=== PATIENT | male | born 1975 | race Caucasian/White ===

== ENCOUNTER 2022-11-09 13:32 | Outpatient (CLI) | payer BC, SELFPAY ==
--- NOTE | 2022-11-09 13:45 | US_ITS ---
WS: [id number] RIGHT UPPER QUADRANT ULTRASOUND HISTORY: Right upper quadrant pain COMPARISON: None available. Liver: 14.1 cm in length. Normal size liver. Mild coarsened echotexture. Focal fatty sparing adjacent to the gallbladder. Portal Vein: Normal hepatopetal flow with monophasic waveform. Gallbladder: Normally distended gallbladder with no stones or wall thickening. CBD: 0.3 cm Pancreas: Poorly visualized. Head and tail are not visualized. The body is negative. Right kidney: 10.8 cm in length. Normal size and echogenicity. No hydronephrosis or mass. Aorta and IVC: Unremarkable abdominal aorta and IVC. No ascites. US/US abdomen limited [id number] IMPRESSION: 1. Negative gallbladder. 2. Normal size liver with changes of hepatic steatosis and focal fatty sparing .
== END 2022-11-09 13:33 | disposition home or self-care (01) ==
PROVIDERS: PCP Family Medicine; Visit Provider Clinical Nurse Specialist Adult Health
DX: R10.11 Right upper quadrant pain (principal)
CPT/HCPCS: 76705; 80053; 80061; 85025

== ENCOUNTER 2022-12-28 07:46 | Outpatient (CLI) | payer BC, SELFPAY ==
--- NOTE | 2022-12-28 08:00 | NM_ITS ---
WS: [id number] NUCLEAR MEDICINE HIDA SCAN CLINICAL INFORMATION: RUQ pain, abd US negative TECHNIQUE: Following intravenous administration of mCi of technetium 99m mebrofenin, images of the ab domen were obtained over the course of 60 minutes. Next, gallbladder ejection fraction was determined by obtaining preprandial and one-hour postprandial images of the gallbladder following oral ingestio n of Ensure. COMPARISON: Ultrasound November 09, 2022 FINDINGS: Normal hepatic uptake at 5 minutes. Gallbladder is visualized by 10 to 15 minutes. No evidence of acu te cholecystitis. Common bile duct and small bowel activity visualized. Gallbladder ejection fraction 36% at the lower end of the range suggestive of gallbladder dysfunction . This can be seen with chronic cholecystitis. NM/NM hepatobiliary w phar* [id number] IMPRESSION: Gallbladder ejection fraction 36% at the lower end of the range suggestive of g allbladder dysfunction. This can be seen with chronic cholecystitis.
== END 2022-12-28 07:47 | disposition home or self-care (01) ==
PROVIDERS: PCP Family Medicine; Visit Provider Clinical Nurse Specialist Adult Health
DX: R10.11 Right upper quadrant pain (principal)
CPT/HCPCS: 78227; A9537

== ENCOUNTER 2023-03-16 16:31 | Emergency (ER) | payer BC, SELFPAY ==
[2023-03-16 16:58] VITALS: BP 140/84; PULSE 83; RESP 14; TEMP 36.8; O2SAT 95; BMI 40.1
--- NOTE | 2023-03-16 21:40 | W.ED.SKABFB ---
HPI - Skin/Abscess/Foreign Bdy General: Chief complaint: Skin/Abscess/Foreign Body Stated complaint: cyst cause pain Time Seen by Provider: 03/16/23 21:40 History of Present Illness: Patient comes in due to drainage from an abscess to his right inner buttocks. Patient was diagnosed with cyst in urgent care. Patient was told that it was a pilonidal cyst. Patient appears nontoxic. Patient appears in no acute distress. Vital signs are stable. Review of Systems General: Reports: 10 or more systems reviewed and unremarkable except in HPI and below Skin/Breast: Reports: new lesions (Draining lesion) PFS ED PFSH: Medical History Generalized anxiety disorder Hyperlipidemia VASYL (obstructive sleep apnea) Surgical History No pertinent past surgical history Family History Other CAD (coronary artery disease) Diabetes Social History Smoking and tobacco status: never smoked Alcohol intake: never Marital status: Number of children: 4 Current occupation: [employer] Physical Exam Const: COMMON NORMALS: alert HENMT: COMMON NORMALS: normocephalic HEAD & SCALP: normocephalic Neck/C-Spine: COMMON NORMALS: full ROM Resp: COMMON NORMALS: normal respiratory effort Cardio: COMMON NORMALS: regular rate RATE: regular rate GI: COMMON NORMALS: non-tender Back/Pelvis: BACK IMAGE (MALE): 1. Draining abscess Neuro: SENSORIUM/ORIENTATION: Yes alert Skin: LESIONS: lesion noted (Abscess right buttock draining purulent white fluid) Course Vital Signs: Vital signs: Vital Signs Temperature 98.2 F 03/16/23 16:58 Pulse Rate 83 03/16/23 16:58 Respiratory Rate 14 03/16/23 16:58 Blood Pressure 140/84 03/16/23 16:58 Pulse Oximetry 95 03/16/23 16:58 Oxygen Delivery Me thod Room Air 03/16/23 16:58 MDM - Skin/Abscess/Foreign Bdy Medicial Decision Making 47-year-old male patient comes in today for complaints of draining wound to the right buttocks. On exam to the inner right buttocks there is purulent drainage from the site. No significant induration or crepitus of the skin is noted. Vital signs are normal. Differential diagnosis includes but not limited to perianal abscess, pilonidal abscess, cutaneous abscess. Patient has a simple abscess draining from the buttocks. No signs of significant illness is noted. Patient will continue with doxycycline. Patient was given some hydrocodone for severe pain. Reviewed recommended treatment including warm compresses and warm water soaks until wound heals. Patient was recommended to be off 2 more days from work. Patient reported understanding and agreed to plan. Discharge Plan Discharge Patient Disposition: Home Clinical Impression: Abscess of skin or subcutaneous tissue Qualifiers: Site of cutaneous abscess: buttock Qualified Code(s): L02.31 - Cutaneous abscess of buttock Condition: Stable Prescriptions: New hydrocodone-acetaminophen 5-325 mg tablet 1 tab PO Q8H PRN (Reason: pain) Qty: 6 0RF No Action (DME) autotitrating CPAP See Rx Instructions .Route .MEDSUPPLY Qty: 1 0RF Rx Instructions: auto titrating CPAP 6-14 cm H20. will need for lifetime. omeprazole magnesium [Prilosec OTC] 20 mg tablet,delayed release (DR/EC) 20 mg PO BID Qty: 90 3RF doxycycline hyclate 100 mg tablet 100 mg PO BID 7 Days Qty: 14 0RF escitalopram oxalate 20 mg tablet 20 mg PO DAILY Qty: 90 3RF atorvastatin 20 mg tablet 20 mg PO DAILY Qty: 90 3RF Hold Instructions: Doctor's Order buspirone 5 mg tablet 5 mg PO BID PRN (Reason: anxiety) Qty: 60 5RF Discharge Orders: Discharge ED (Routine); Ordered 03/16/23 Ordered By: Obed Arias Referrals: Javier Hi, PUBLIC HEALTH PROFESSOR [Primary Care Provider] - Discharge Diet: Usual diet Discharge Activity: Increase activity as tolerated Patient Instructions: Abscess Incision and Drainage (DC) Activity Restrictions/Additional Instructions: Use warm moist soaks to the area to help with expression of purulent drainage. Continue with antibiotics as directed. Drink plenty of water. And ibuprofen to control pain. Use hydrocodone for severe pain. Return to ED for new concerns. Coding Level of Care Code ED Acid Correction Hand for Silvino Jones
[2023-03-16] MEDS: HYDROcodone-acetaminophen 5-325 mg Tablet 1 TAB PO (22:02)
== END 2023-03-16 22:14 | disposition home or self-care (01) ==
PROVIDERS: Emergency Provider Nurse Practitioner Family; PCP Clinical Nurse Specialist Adult Health
DX: L02.31 Cutaneous abscess of buttock (principal)
CPT/HCPCS: 99283

== ENCOUNTER → 2023-10-15 11:03 | Outpatient (BNVA) | payer BC, SELFPAY | PROVIDERS: PCP Clinical Nurse Specialist Adult Health; Visit Provider Clinical Nurse Specialist Adult Health | DX: E78.00 Pure hypercholesterolemia, unspecified (principal) | CPT/HCPCS: 80053; 80061; 85025 ==

== ENCOUNTER → 2024-02-22 09:49 | Outpatient (BNVA) | payer BC, SELFPAY | PROVIDERS: PCP Clinical Nurse Specialist Adult Health; Visit Provider Family Medicine | DX: Z13.220 Encounter for screening for lipoid disorders (principal); E53.8 Deficiency of other specified B group vitamins; E03.9 Hypothyroidism, unspecified; E55.9 Vitamin D deficiency, unspecified; Z51.81 Encounter for therapeutic drug level monitoring | CPT/HCPCS: 80053; 80061; 82306; 82607; 84439; 84443; 85025 ==

== ENCOUNTER 2024-04-26 10:28 | Day surgery (SDC) | payer BC, SELFPAY ==
[2024-04-26 10:42] VITALS: BP 141/94; PULSE 103; RESP 18; TEMP 36.4; O2SAT 92; BMI 43.0
[2024-04-26] MEDS: sodium chloride 0.9% 1,000 ML 30 ML IV (10:55)
--- NOTE | 2024-04-26 11:20 | P.ANESASSM_ITS ---
Pre-Anesthetic Assessment Height/Weight: Height 1.78 m Weight 136.078 kg Temp Pulse Resp BP Pulse Ox O2 Del Method 97.6 F 103 H 18 141/94 92 Room Air 04/26/24 10:42 04/26/24 10:42 04/26/24 10:42 04/26/24 10:42 04/26/24 10:42 04/26/24 10:42 Preop Diagnosis: GERD/ screening Operation Date: 04/26/24 11:30 Proposed Procedures p EGD 26476, 12456, G0121, R10.11, K21.9, Z12.11(Not Applicable) - Kevin Mcqueen DO s Colonoscopy(Not Applicable) - Kevin Mcqueen DO Familial anesthetic complications: none Was Beta Jenna taken within 24 hours: N/A Was Clonidine taken within 24 hours: N/A Last intake: Intake Last Liquid Date 04/25/24 Last Liquid Time 22:00 Last Solid Date 04/24/24 Last Solid Time 19:30 Social No alcohol and No tobacco Exam alert, oriented x 3, clear to auscultation bilaterally and regular rate & rhythm Airway Submandibular: within normal limits Cervical ROM: within normal limits Mallampati: Class II Dentition: full Pulmonary Sleep Apnea (CPAP) CV/HEM Hypertension None reported Hepatic None reported GI Gastroesophageal Reflux Disease Metabolic Hyperlipidemia, Morbid Obesity and Thyroid Disease [facility] [place] None reported Neuropsych Anxiety Anesthetic Plan ASA status: 3 Anesthesia: MAC Risk of > 500 ml blood loss (7ml/kg in children): No Medications/Allergies Home Medications Medication Instructions Recorded Confirmed Last Taken Type autotitrating CPAP #1 ea 11/09/22 03/17/24 Unknown Rx buspirone 5 mg tablet 5 mg PO BID PRN anxiety #60 tabs 12/31/23 04/26/24 04/25/24 Rx losartan 50 mg-hydrochlorothiazide 1 tab PO DAILY #90 tabs 12/31/23 04/26/24 04/25/24 Rx 12.5 mg tablet (Hyzaar) escitalopram oxalate 20 mg tablet 20 mg PO DAILY #90 tabs 01/05/24 04/26/24 04/25/24 Rx atorvastatin 40 mg tablet 40 mg PO DAILY #90 tabs 01/20/24 04/26/24 04/25/24 Rx omeprazole magnesium 20 mg 20 mg PO BID PRN Acid Reflux 02/22/24 04/26/24 Unknow n History tablet,delayed release (Prilosec OTC) cholecalciferol (vitamin D3) 50 50 mcg PO DAILY #30 caps 03/16/24 04/26/24 04/25/24 Rx mcg (2,000 unit) capsule levothyroxine 50 mcg tablet 50 mcg PO DAILY #30 tabs 04/21/24 04/26/24 04/19/24 Rx Allergies Allergy/AdvReac Type Severity Reaction Status Date / Time No Known Allergies Allergy Verified 03/17/24 08:26 Current Medications Generic Name Dose Route Start Last Admin Trade Name Freq PRN Reason Stop Dose Admin Sodium Chloride 1,000 mls @ 30 mls/hr 04/26/24 10:45 04/26/24 10:55 Sodium Chloride 0.9% IV 04/27/24 10:44 30 mls/hr .Q24H FERNIE Administration PFSH Anesthesia Medical History Morbid obesity Dysfunctional gallbladder low ejection fraction of 36% on HIDA scan Essential hypertension Generalized anxiety disorder VASYL (obstructive sleep apnea) compliant with CPAP Hyperlipidemia Surgical History No pertinent past surgical history Family History Father Diabetes mellitus, type 2 Dyslipidemia Mother Dyslipidemia Grandfather CAD (coronary artery disease) Other Diabetes Social History Smoking and tobacco/nicotine status: never used tobacco/nicotine Alcohol intake: current Substance/Drug Use: never Marital status: Number of children: 4 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
--- NOTE | 2024-04-26 12:11 | P.HP_ITS ---
Providers/Chief Complaint Primary Care Provider: Kevin Chaves MD Chief Complaint: Z12.11 History of Present Illness Ant Lee is a 48 year old male Review of Systems General: Reports: 10 or more systems reviewed and unremarkable except in HPI and below Medications/Allergies Home Medications Medication Instructions Recorded Confirmed Last Taken Type autotitrating CPAP #1 ea 11/09/22 03/17/24 Unknown Rx buspirone 5 mg tablet 5 mg PO BID PRN anxiety #60 tabs 12/31/23 04/26/24 04/25/24 Rx losartan 50 mg-hydrochlorothiazide 1 tab PO DAILY #90 tabs 12/31/23 04/26/24 04/25/24 Rx 12.5 mg tablet (Hyzaar) escitalopram oxalate 20 mg tablet 20 mg PO DAILY #90 tabs 01/05/24 04/26/24 04/25/24 Rx atorvastatin 40 mg tablet 40 mg PO DAILY #90 tabs 01/20/24 04/26/24 04/25/24 Rx omeprazole magnesium 20 mg 20 mg PO BID PRN Acid Reflux 02/22/24 04/26/24 Unknown History tablet,delayed release (Prilosec OTC) cholecalciferol (vitamin D3) 50 50 mcg PO DAILY #30 caps 03/16/24 04/26/24 04/25/24 Rx mcg (2,000 unit) capsule levothyroxine 50 mcg tablet 50 mcg PO DAILY #30 tabs 04/21/24 04/26/24 04/19/24 Rx Allergies Allergy/AdvReac Type Severity Reaction Status Date / Time No Known Allergies Allergy Verified 03/17/24 08:26 PFSH Acute PFSH: Medical History Morbid obesity Dysfunctional gallbladder low ejection fraction of 36% on HIDA scan Essential hypertension Generalized anxiety disorder VASYL (obstructive sleep apnea) compliant with CPAP Hyperlipidemia Surgical History No pertinent past surgical history Family History Father Diabetes mellitus, type 2 Dyslipidemia Mother Dyslipidemia Grandfather CAD (coronary artery disease) Other Diabetes Social History Smoking and tobacco/nicotine status: never used tobacco/nicotine Alcohol intake: current Substance/Drug Use: never Marital status: Number of children: 4 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
[2024-04-26 12:39] VITALS: BP 141/92; PULSE 90; RESP 18; TEMP 36.1; O2SAT 92
[2024-04-26] MEDS: ondansetron 2 mg/ML SDV 2 mL 4 MG IVP (12:45)
[2024-04-26 12:55] VITALS: BP 156/92; PULSE 82; RESP 16; O2SAT 91
--- NOTE | 2024-04-26 13:15 | ANE.PACU2 ---
Inpatient post-anesthesia follow up: Airway intact: Yes Vital signs: Temperature 97 F Pulse Rate 82 Respiratory Rate 16 Blood Pressure 156/92 Pulse Oximetry 91 Oxygen Delivery Me thod Room Air Oxygen Flow Rate Fraction of Inspir ed Oxygen Hydration adequate: Yes Nausea and vomiting: No Pain level: 1 Mental status: Baseline
== END 2024-04-26 13:15 | disposition home or self-care (01) ==
PROVIDERS: PCP Family Medicine; Visit Provider Surgery
PROC: 0DJ08ZZ Inspection of Upper Intestinal Tract, Via Natural or Artificial Opening Endoscopic (ICD-10-PCS; CPT 43235; principal; 2024-04-26 11:30)
PROC: 0DJD8ZZ Inspection of Lower Intestinal Tract, Via Natural or Artificial Opening Endoscopic (ICD-10-PCS; CPT 45378; 2024-04-26 11:30)
DX: Z12.11 Encounter for screening for malignant neoplasm of colon (principal); E66.01 Morbid (severe) obesity due to excess calories; Z68.41 Body mass index [BMI] 40.0-44.9, adult; I10 Essential (primary) hypertension; G47.33 Obstructive sleep apnea (adult) (pediatric); E78.5 Hyperlipidemia, unspecified; K57.30 Diverticulosis of large intestine without perforation or abscess without bleeding; K63.5 Polyp of colon
CPT/HCPCS: 43239; 45385; 88305; J2405; J2704; J3010; J7030

== ENCOUNTER 2024-05-16 06:51 | Day surgery (SDC) | payer BC, SELFPAY ==
[2024-05-16] VITALS (16 sets, daily range): BP systolic 123–172; BP diastolic 66–96; PULSE 67–96; RESP 16–20; TEMP 36.4–36.7; O2SAT 90–97; BMI 43.0
[2024-05-16] MEDS: sodium chloride 0.9% 1,000 ML 30 ML IV (07:31)
--- NOTE | 2024-05-16 07:43 | ANES.PREANE2 ---
Pre-Anesthetic Assessment Height/Weight: Height 1.78 m Weight 136.078 kg Temp Pulse Resp BP Pulse Ox O2 Del Method 97.7 F 67 18 123/81 95 Room Air 05/16/24 07:15 05/16/24 07:15 05/16/24 07:15 05/16/24 07:15 05/16/24 07:15 05/16/24 07:15 Operation Date: 05/16/24 08:25 Proposed Procedures p Laparoscopic Cholecystectomy 31008, K82.8(Not Applicable) - Kevin Mcqueen DO Familial anesthetic complications: PONV Was Beta Jenna taken within 24 hours: N/A Was Clonidine taken within 24 hours: N/A Last intake: Intake Last Liquid Date 05/15/24 Last Liquid Time 21:00 Last Solid Date 05/15/24 Last Solid Time 18:30 Social No alcohol and No tobacco Exam alert, oriented x 3, clear to auscultation bilaterally and regular rate & rhythm Airway Mallampati: Class IV Dentition: full Comments: Comments: large tongue and neck Pulmonary Sleep Apnea CV/HEM Hypertension GI Gastroesophageal Reflux Disease Metabolic Hyperlipidemia, Morbid Obesity and Thyroid Disease Anesthetic Plan ASA status: 3 Anesthesia: General Risk of > 500 ml blood loss (7ml/kg in children): No Medications/Allergies Home Medications Medication Instructions Recorded Confirmed Last Taken Type autotitrating CPAP #1 ea 11/09/22 05/08/24 Unknown Rx buspirone 5 mg tablet 5 mg PO BID PRN anxiety #60 tabs 12/31/23 05/15/24 05/14/24 Rx losartan 50 mg-hydrochlorothiazide 1 tab PO DAILY #90 tabs 12/31/23 05/15/24 05/14/24 Rx 12.5 mg tablet (Hyzaar) escitalopram oxalate 20 mg tablet 20 mg PO DAILY #90 tabs 01/05/24 05/15/24 05/14/24 Rx atorvastatin 40 mg tablet 40 mg PO DAILY #90 tabs 01/20/24 05/15/24 05/14/24 Rx cholecalciferol (vitamin D3) 50 50 mcg PO DAILY #30 caps 03/16/24 05/15/24 05/14/24 Rx mcg (2,000 unit) capsule levothyroxine 50 mcg tablet 50 mcg PO DAILY #30 tabs 04/21/24 05/15/24 05/14/24 Rx Allergies Allergy/AdvReac Type Severity Reaction Status Date / Time No Known Allergies Allergy Verified 05/08/24 10:30 Current Medications Generic Name Dose Route Start Last Admin Trade Name Danelle PRN Reason Stop Dose Admin Sodium Chloride 1,000 mls @ 30 mls/hr 05/16/24 07:15 05/16/24 07:31 Sodium Chloride 0.9% IV 05/17/24 07:14 30 mls/hr .Q24H FERNIE Administration PFSH Anesthesia Medical History Morbid obesity Dysfunctional gallbladder low ejection fraction of 36% on HIDA scan Essential hypertension Generalized anxiety disorder VASYL (obstructive sleep apnea) compliant with CPAP Hyperlipidemia Surgical History (Updated 05/15/24 @ 14:07 by Mago Gonzalez RN) No pertinent past surgical history Family History Father Diabetes mellitus, type 2 Dyslipidemia Mother Dyslipidemia Grandfather CAD (coronary artery disease) Other Diabetes Social History Smoking and tobacco/nicotine status: never used tobacco/nicotine Alcohol intake: current Substance/Drug Use: never Marital status: Number of children: 4 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
--- NOTE | 2024-05-16 08:19 | W.PM.OPSUD ---
Surgery/Procedure H&P Update DATE OF PROCEDURE: May 16, 2024 DATE H&P PERFORMED: 05/08/24 H&P UPDATE INFORMATION: I have reviewed H&P completed within last 30 days, I have examined patient prior to procedure and No changes to prior documentation PLANNED PROCEDURE: Operation Date: 05/16/24 08:25 Proposed Procedures p Laparoscopic Cholecystectomy 25378, K82.8(Not Applicable) - Kevin Mcqueen DO
[2024-05-16] MEDS: ceFAZolin 3,000 mg SDV 3000 MG IVP (08:34)
[2024-05-16] MEDS: lidocaine-epi 2% PF 1:200,000 20 mL SDV XX (08:45)
--- NOTE | 2024-05-16 09:11 | P.OP_ITS ---
Operative Report Date of procedure: May 16, 2024 Surgeon: Kevin Mcqueen DO Brief History: This is a very pleasant 48-year-old gentleman who presented my office with biliary colic and a dysfunctional gallbladder. Laparoscopic cholecystectomy is indicated. Risk and benefits of the procedure were explained and documented. Procedure: Preoperative diagnosis: Biliary colic Postoperative diagnosis: Same Procedure performed: Laparoscopic cholecystectomy Surgeon: Dr. Kevin Mcqueen DO Estimated blood loss: 5 mL Specimens: Gallbladder to pathology Complications: None apparent Description of procedure: Patient was wheeled into the operative room and placed on the OR table in a supine position. Abdomen was inspected prepped and draped in usual sterile fashion. Time-out was performed and all present were in agreement. A 15 blade scalp was used to make a stab incision in the left upper quadrant and intra- abdominal insufflation was achieved using a Veress needle. After localizing the tissue incisions were made and a 5 millimeter trocar was placed into the umbilicus as well as 2 in the right upper quadrant. A 12 millimeter trocar was placed in the epigastrium. Gallbladder was grasped and elevated. The triangle of Calot was carefully dissected using blunt dissection and electrocautery until the triangle of Calot clearly identified. The cystic duct was clipped proximally and double clipped distally. The duct was then ligated proximally. The cystic artery was doubly clipped and ligated. The gallbladder was then removed from the liver bed using electrocautery. The gallbladder was removed from the abdomen using an Endo-Catch bag through the epigastric incision. The liver bed was inspected and no bleeding was seen. The abdomen was irrigated and suctioned. All ports removed. Skin was washed and dried. Incisions were closed with 4-0 Monocryl in a subcuticular interrupted fashion. Skin glue was applied. Patient tolerated the procedure well.
[2024-05-16] MEDS: fentaNYL 50 mcg/mL INJ 2mL IVP ×2 (09:36→09:44)
[2024-05-16] MEDS: HYDROmorphone 1 mg/mL INJ 1 mL 0.5 MG IVP (09:50)
[2024-05-16] MEDS: ketorolac 30 mg/mL INJ IVP (10:19)
[2024-05-16] MEDS: acetaminophen 1,000 MG/100 ML PIGGYBACK 400 MG IV (10:33)
[2024-05-16] MEDS: HYDROcodone-acetaminophen 7.5-325 mg Tablet 1 TAB PO (10:54)
--- NOTE | 2024-05-16 11:45 | ANE.PACU2 ---
Inpatient post-anesthesia follow up: Airway intact: Yes Vital signs: Temperature 97.9 F Pulse Rate 91 Respiratory Rate 18 Blood Pressure 155/90 Pulse Oximetry 93 Oxygen Delivery Me thod Room Air Oxygen Flow Rate 2 Fraction of Inspir ed Oxygen Hydration adequate: Yes Nausea and vomiting: No Pain level: 1 Mental status: Baseline
== END 2024-05-16 11:45 | disposition home or self-care (01) ==
PROVIDERS: PCP Family Medicine; Visit Provider Surgery
PROC: 0FT44ZZ Resection of Gallbladder, Percutaneous Endoscopic Approach (ICD-10-PCS; CPT 47562; principal; 2024-05-16 08:25)
DX: K80.10 Calculus of gallbladder with chronic cholecystitis without obstruction (principal); G47.30 Sleep apnea, unspecified; I10 Essential (primary) hypertension; K21.9 Gastro-esophageal reflux disease without esophagitis; E78.5 Hyperlipidemia, unspecified; E66.01 Morbid (severe) obesity due to excess calories; Z68.41 Body mass index [BMI] 40.0-44.9, adult; G47.33 Obstructive sleep apnea (adult) (pediatric)
CPT/HCPCS: 47562; 88304; J0131; J0690; J1100; J1170; J1885; J2250; J2405; J2704; J2710; J3010; J3490; J7030

== ENCOUNTER → 2024-08-24 09:46 | Outpatient (BNVA) | payer BC, SELFPAY | PROVIDERS: PCP Family Medicine; Visit Provider Family Medicine | DX: Z51.81 Encounter for therapeutic drug level monitoring (principal); E03.9 Hypothyroidism, unspecified; E55.9 Vitamin D deficiency, unspecified; R73.09 Other abnormal glucose; Z13.220 Encounter for screening for lipoid disorders | CPT/HCPCS: 80053; 80061; 82306; 83036; 84439; 84443; 85025 ==

== ENCOUNTER → 2025-02-21 09:47 | Outpatient (BNVA) | payer BC, SELFPAY | PROVIDERS: PCP Family Medicine; Visit Provider Family Medicine | DX: Z00.00 Encounter for general adult medical examination without abnormal findings (principal); E03.9 Hypothyroidism, unspecified; Z51.81 Encounter for therapeutic drug level monitoring; Z12.5 Encounter for screening for malignant neoplasm of prostate | CPT/HCPCS: 80053; 80061; 83036; 84153; 84439; 84443; 85025 ==

== ENCOUNTER → 2025-08-27 10:32 | Outpatient (BNVA) | payer BC, SELFPAY | PROVIDERS: PCP Family Medicine; Visit Provider Family Medicine | DX: Z00.00 Encounter for general adult medical examination without abnormal findings (principal); E03.9 Hypothyroidism, unspecified; Z13.6 Encounter for screening for cardiovascular disorders; R74.01 Elevation of levels of liver transaminase levels; R73.03 Prediabetes; Z51.81 Encounter for therapeutic drug level monitoring | CPT/HCPCS: 80053; 80061; 80074; 83036; 84439; 84443; 85025 ==